=== PATIENT | female | born 1985 | race Caucasian/White ===

== ENCOUNTER 2016-10-06 11:44 | Emergency (ER) | payer MEDICAID, OTHER ==
[~2016-10-06] VITALS: Wt 95.0 kg
[2016-10-06 13:14] LABS: URINE BLOOD (Dip) POC 2+ (NEGATIVE)
[2016-10-06] MEDS ORDERED: NITR-58 PO (13:31)
[2016-10-06] MEDS ORDERED: PHEN-537 PO (13:31)
--- NOTE | 2016-10-06 15:47 | ERD ---
ER Documentation Chief Complaint Date/Time DATE: 10/06/16 TIME: 15:39 Chief Complaint DYSURIA AND HEMATURIA FOR THE PAST FEW DAYS. NO N/V. HPI This is a 31-year-old female presenting to emergency department for dysuria, hematuria, frequency and urgency with urination 2 days. Patient states she believes she has a urinary tract infection. No nausea or vomiting. No abdominal pain. patient has some lower suprapubic pelvic pain. No back pain. Patient states she has 1-2 urinary tract infections per year. No new sexual partners. No vaginal discharge. No pruritus, lesions or rash. ROS All systems reviewed and are negative except as per history of present illness. Medications Home Meds Active Scripts Phenazopyridine Hcl* (Pyridium*) 100 Mg Tab, 100 MG PO TID Y for URINARY PAIN, # 8 TAB Prov:CALLIE VILLANUEVA NP 10/06/16 Nitrofurantoin Monohyd Macrocr* (Macrobid*) 100 Mg Capsr, 100 MG PO BID for 5 Days, CAP Prov:CALLIE VILLANUEVA NP 10/06/16 Allergies Allergies: Coded Allergies: No Known Drug Allergy (Verified Allergy, Unknown, 06/10/15) PMhx/Soc History of Surgery: Yes (CHOLECYSTECTOMY) Anesthesia Reaction: No Hx Neurological Disorder: Yes (MENINGITIS 2006) Hx Respiratory Disorders: No Hx Cardiac Disorders: No Hx Psychiatric Problems: No Hx Miscellaneous Medical Probl: No Hx Alcohol Use: No Hx Substance Use: No Hx Tobacco Use: No Physical Exam Vitals Vital Signs Date Time Temp Pulse Resp B/P Pulse Ox O2 Delivery O2 Flow Rate FiO2 10/06/16 11:46 98.4 83 20 125/75 99 Physical Exam Const: No acute distress, alert Head: Atraumatic Eyes: Normal Conjunctiva ENT: Normal External Ears, Nose and Mouth. Neck: Full range of motion..~ No meningismus. Resp: Clear to auscultation bilaterally. No wheezing, rhonchi or crackles. Cardio: Regular rate and rhythm, no murmurs Abd: Soft, non tender, non distended. Normal bowel sounds Skin: No petechiae or rashes Back: No midline or flank tenderness. No CVA tenderness. Ext: No cyanosis, or edema Neur: Awake and alert Psych: Normal Mood and Affect Results 24 hrs Laboratory Tests Test 10/06/16 13:18 Bedside Urine Blood 2+ Bedside Urine Glucose (UA) Negative Bedside Urine Ketones (LAB) Negative Bedside Urine Leukocyte Esterase (L 3+ Bedside Urine Nitrite (LAB) Negative Bedside Urine Protein (LAB) 1+ Bedside Urine pH (LAB) 7.0 Procedures/MDM ED COURSE: The patient was stable throughout ED course. I kept the patient and/or family informed of laboratory and diagnostic imaging results throughout the ED course. Laboratory Urine dip 3+ leukocyte esterase, 2+ blood, 1+ protein Urine culture results are pending MDM: This is a 31-year-old female presenting to emergency department for dysuria , hematuria, frequency and urgency with urination 2 days. Urine dip is positive for infection. Urine culture results are pending. No fevers or chills. No CVA tenderness. Patient has suprapubic tenderness on physical exam. Patient's diagnosis is urinary tract infection. Low suspicion for pyelonephritis nephrolithiasis or sepsis., Patient is appropriate for outpatient management will be given prescription for Macrobid and Pyridium. Instructed patient to follow-up with primary care provider in the next 24-48 hours for reassessment and additional management. Return to ED for any high fever, chest pain, difficulty breathing, shortness breath, wheezing, vomiting, diarrhea, abdominal pain or any new or worsening symptoms. Patient verbalizes understanding. All questions answered at discharge. Departure Diagnosis: Primary Impression: UTI (urinary tract infection) Urinary tract infection type: site unspecified Hematuria presence: with hematuria Qualified Code: N39.0 - Urinary tract infection with hematuria, site unspecified Condition: Stable Patient Instructions: Understanding Urinary Tract Infections (UTIs) Referrals: [facility], [facility] YOU HAVE RECEIVED A MEDICAL SCREENING EXAM AND THE RESULTS INDICATE THAT YOU DO NOT HAVE A CONDITION THAT REQUIRES URGENT TREATMENT IN THE EMERGENCY DEPARTMENT. FURTHER EVALUATION AND TREATMENT OF YOUR CONDITION CAN WAIT UNTIL YOU ARE SEEN IN YOUR DOCTORS OFFICE WITHIN THE NEXT 1-2 DAYS. IT IS YOUR RESPONSIBILITY TO MAKE AN APPOINTMENT FOR FOLOW-UP CARE. IF YOU HAVE A PRIMARY DOCTOR --you should call your primary doctor and schedule an appointment IF YOU DO NOT HAVE A PRIMARY DOCTOR YOU CAN CALL OUR PHYSICIAN REFERRAL HOTLINE AT IF YOU CAN NOT AFFORD TO SEE A PHYSICIAN YOU CAN CHOSE FROM THE FOLLOWING [facility] [address] [facility]. [facility] [address] [facility] [facility] [address] [facility] [address] [facility]. [facility] [address] [facility]. [facility] [address] [facility]. [facility] YOU HAVE RECEIVED A MEDICAL SCREENING EXAM AND THE RESULTS INDICATE THAT YOU DO NOT HAVE A CONDITION THAT REQUIRES URGENT TREATMENT IN THE EMERGENCY DEPARTMENT. FURTHER EVALUATION AND TREATMENT OF YOUR CONDITION CAN WAIT UNTIL YOU ARE SEEN IN YOUR DOCTORS OFFICE WITHIN THE NEXT 1-2 DAYS. IT IS YOUR RESPONSIBILITY TO MAKE AN APPOINTMENT FOR FOLOW-UP CARE. IF YOU HAVE A PRIMARY DOCTOR --you should call your primary doctor and schedule and appointment IF YOU DO NOT HAVE A PRIMARY DOCTOR YOU CAN CALL OUR PHYSICIAN REFERRAL HOTLINE AT . IF YOU CAN NOT AFFORD TO SEE A PHYSICIAN YOU CAN CHOSE FROM THE FOLLOWING [facility] INSTITUTIONS: [facility] [address] [place] [address] [facility] [address] [place] [address] [facility] [address] [place] [address] Additional Instructions: Call your primary care doctor TOMORROW for an appointment during the next 2-3 days.See the doctor sooner or return here if your condition worsens before your appointment time. Return to ED for any high fever, chest pain, difficulty breathing, shortness breath, wheezing, vomiting, diarrhea, abdominal pain or any new or worsening symptoms. CALLIE VILLANUEVA NP Oct 06, 2016 15:47
== END 2016-10-06 14:33 | disposition home or self-care (01) ==
LOC: FTE 11:44
DX: N39.0 Urinary tract infection, site not specified (principal)
CPT/HCPCS: 81003; 87086; Z7502; 99283

== ENCOUNTER 2017-02-26 20:59 | Emergency (ER) | payer MEDICAID, OTHER ==
[~2017-02-26] VITALS: Ht 160 cm; Wt 94.5 kg
[~2017-02-26 20:59] MED LIST: NITR-58 PO; PHEN-537 PO
[2017-02-26 21:07] VITALS: Ht 160 cm; Wt 94.5 kg
[2017-02-26] MEDS ORDERED: AMO500 PO (21:37)
--- NOTE | 2017-02-26 23:26 | ERD ---
ER Documentation Chief Complaint Date/Time DATE: 02/26/17 TIME: 23:24 Chief Complaint LEFT UPPER TOOTH PAIN WITH SWELLING SINCE SATURDAY HPI This patient is a 31-year-old female presenting to the emergency department with complaints of left upper tooth pain for the past 2 days. Symptoms are worsening and constant. Associated symptoms include swelling. Overall symptoms are mild. She states she is calling to make a dentist appointment tomorrow. She denies fevers, chills, or other symptoms. ROS All systems reviewed and are negative except as per history of present illness. Medications Home Meds Active Scripts Amoxicillin* (Amoxicillin*) 500 Mg Cap, 500 MG PO TID for 7 Days, #21 CAP Prov:JAYY GARRISON PA-C 02/26/17 Phenazopyridine Hcl* (Pyridium*) 100 Mg Tab, 100 MG PO TID Y for URINARY PAIN, # 8 TAB Prov:CALLIE VILLANUEVA NP 10/06/16 Nitrofurantoin Monohyd Macrocr* (Macrobid*) 100 Mg Capsr, 100 MG PO BID for 5 Days, CAP Prov:CALLIE VILLANUEVA NP 10/06/16 Allergies Allergies: Coded Allergies: No Known Drug Allergy (Verified Allergy, Unknown, 06/10/15) PMhx/Soc History of Surgery: Yes (CHOLECYSTECTOMY) Anesthesia Reaction: No Hx Neurological Disorder: Yes (MENINGITIS 2007) Hx Respiratory Disorders: No Hx Cardiac Disorders: No Hx Psychiatric Problems: No Hx Miscellaneous Medical Probl: No Hx Alcohol Use: No Hx Substance Use: No Hx Tobacco Use: No Smoking Status: Never smoker Physical Exam Vitals Vital Signs Date Time Temp Pulse Resp B/P Pulse Ox O2 Delivery O2 Flow Rate FiO2 02/26/17 21:07 99.3 73 18 117/75 98 Physical Exam Const: Nontoxic, well-appearing female in no acute distress. Head: Atraumatic Eyes: Normal Conjunctiva ENT: Normal External Ears, Nose and Mouth. Examination of the mouth shows dental caries, poor dentition, erythema and edema surrounding the upper left lateral incisor. Neck: Full range of motion..~ No meningismus. Resp: No signs of respiratory distress noted. No retractions noted. Skin: No petechiae or rashes Back: No midline or flank tenderness Ext: No cyanosis, or edema Neur: Awake and alert Psych: Normal Mood and Affect Procedures/MDM 31-year-old female presents to the emergency department with dental pain. History and clinical examination is consistent with possible early dental abscess to the left upper lateral incisor. The patient has had this in the past and it resolved with amoxicillin. The patient will be prescribed amoxicillin and treated as an outpatient. She is to have close follow-up with her dentist. I have low suspicion for deep tissue infection, sepsis, or other emergent conditions. The patient agreed with the discharge plan and diagnosis. The patient is to return immediately for any new or worsening symptoms. Departure Diagnosis: Primary Impression: Pain, dental Condition: Fair Patient Instructions: Dental Pain Referrals: [facility] YOU HAVE RECEIVED A MEDICAL SCREENING EXAM AND THE RESULTS INDICATE THAT YOU DO NOT HAVE A CONDITION THAT REQUIRES URGENT TREATMENT IN THE EMERGENCY DEPARTMENT. FURTHER EVALUATION AND TREATMENT OF YOUR CONDITION CAN WAIT UNTIL YOU ARE SEEN IN YOUR DOCTORS OFFICE WITHIN THE NEXT 1-2 DAYS. IT IS YOUR RESPONSIBILITY TO MAKE AN APPOINTMENT FOR FOLOW-UP CARE. IF YOU HAVE A PRIMARY DOCTOR --you should call your primary doctor and schedule an appointment IF YOU DO NOT HAVE A PRIMARY DOCTOR YOU CAN CALL OUR PHYSICIAN REFERRAL HOTLINE AT IF YOU CAN NOT AFFORD TO SEE A PHYSICIAN YOU CAN CHOSE FROM THE FOLLOWING [facility] [address] [facility]. [facility] [address] [facility] [address] [facility] [address] [facility] [facility] [address] [facility] [facility]. [address] Additional Instructions: Follow up with your PCP within the next 1-3 days for a repeat evaluation. If you require a referral to a specialist, your Primary Care Provider may be able to provide this for you. In most patient cases, a referral is not required. If you have further questions regarding this matter, please ask your Primary Care Provider. Return the the emergency department immediately if symptoms worsen or change. If you have any questions regarding medications, ask your pharmacist or us before you leave. If any adverse reactions, occur while taking your medications, discontinue the treatment and return to the emergency department immediately. If any new or worsening symptoms, uncontrolled fevers, or other unexplained symptoms occur, return to the emergency department immediately. Take your medications as directed, and complete the entire course of treatment. JAYY GARRISON PA-C Feb 26, 2017 23:26
== END 2017-02-26 21:44 | disposition home or self-care (01) ==
LOC: FTE 20:59
DX: K08.89 Other specified disorders of teeth and supporting structures (principal)
CPT/HCPCS: 99283

== ENCOUNTER 2017-05-22 12:25 | Emergency (ER) | payer MEDICAID ==
[~2017-05-22] VITALS: Ht 157.5 cm; Wt 92.5 kg
[~2017-05-22 12:25] MED LIST changes: +AMOX500C2 PO
[2017-05-22 12:29] VITALS: Ht 157.5 cm; Wt 92.5 kg
== END 2017-05-22 14:05 | disposition left against medical advice (07) ==
LOC: FTE 12:25
DX: Z53.21 Procedure and treatment not carried out due to patient leaving prior to being seen by health care provider (principal)

== ENCOUNTER 2018-03-11 09:03 | Emergency (ER) | END 2018-03-11 11:42 | disposition home or self-care (01) ==

== ENCOUNTER 2019-01-21 19:44 | Emergency (ER) | payer OTHER ==
[~2019-01-21] VITALS: Ht 162.6 cm; Wt 91.0 kg
[~2019-01-21 19:44] MED LIST changes: +NAPR-985 PO
[2019-01-21 19:55] VITALS: BP 115/68; PULSE 99; RESP 18; Ht 162.6 cm; Wt 91.0 kg
[2019-01-21] MEDS ORDERED: IBUP-1542 PO (21:01)
[2019-01-21] MEDS ORDERED: AMOX1TAB10 PO (21:02)
--- NOTE | 2019-01-22 02:46 | ERD ---
ER Documentation Chief Complaint Chief Complaint L earache x 1 week w/slight pus&bleed; hx perforated eardrum HPI 33-year-old female with history of perforated left TM presents with complaint of earache for the last week with some noted discharge. Denies any treatments. States pain is currently an 8 out of 10. She does not want any opiates for pain but rather ibuprofen. Patient denies any fevers, chills, headaches, mastoid tenderness, hearing problems. ROS All systems reviewed and are negative except as per history of present illness. Medications Home Meds Active Scripts Amoxicillin/Potassium Clav (Amox-Clav 875-125 mg Tablet) 875-125 mg Tab, 1 TAB PO BID for 10 Days, #20 TAB Prov:JAYY RODRIGUES 01/21/19 Ibuprofen* (Motrin*) 600 Mg Tab, 600 MG PO Q6H PRN for PAIN AND OR ELEVATED TEMP, #30 TAB Prov:JAYY RODRIGUES 01/21/19 Naproxen* (Naprosyn*) 500 Mg Tablet, 500 MG PO BID PRN for PAIN AND/OR INFLAMMATION, #30 TAB Prov:HEATHER FERNANDO PA-C 03/11/18 Amoxicillin* (Amoxicillin*) 500 Mg Cap, 500 MG PO TID for 7 Days, #21 CAP Prov:JAYY GARRISON PA-C 02/26/17 Phenazopyridine Hcl* (Pyridium*) 100 Mg Tab, 100 MG PO TID PRN for URINARY PAIN, #8 TAB Prov:CALLIE VILLANUEVA NP 10/06/16 Nitrofurantoin Monohyd Macrocr* (Macrobid*) 100 Mg Capsr, 100 MG PO BID for 5 Days, CAP Prov:CALLIE VILLANUEVA NP 10/06/16 Allergies Allergies: Coded Allergies: No Known Drug Allergy (Verified Allergy, Unknown, 06/10/15) PMhx/Soc History of Surgery: Yes (CHOLECYSTECTOMY) Anesthesia Reaction: No Hx Neurological Disorder: Yes (MENINGITIS 2007) Hx Respiratory Disorders: No Hx Cardiac Disorders: No Hx Psychiatric Problems: No Hx Miscellaneous Medical Probl: Yes (LT FOOT INJURY) Hx Alcohol Use: No Hx Substance Use: No Hx Tobacco Use: No Smoking Status: Never smoker FmHx Family History: No diabetes, No coronary disease, No other Physical Exam Vitals Vital Signs Date Temp Pulse Resp B/P (MAP) Pulse Ox O2 O2 Flow FiO2 Time Delivery Rate 01/21/19 97.8 99 18 115/68 95 19:55 (84) Physical Exam 50 const: No acute distress Head: Atraumatic Eyes: Normal Conjunctiva ENT: Normal External Ears, Nose and Mouth. Left TM is partially ruptured and erythematous. There is some discharge noted. No blood noted. Canals are patent with no edema or erythema. Tragus is nontender to palpation. Mastoids are nonedematous erythematous edematous or tender to palpation. Neck: Full range of motion. No meningismus. Resp: Clear to auscultation bilaterally Cardio: Regular rate and rhythm, no murmurs Abd: Soft, non tender, non distended. Normal bowel sounds Skin: No petechiae or rashes Back: No midline or flank tenderness Ext: No cyanosis, or edema Neur: Awake and alert Psych: Normal Mood and Affect Procedures/MDM MDM: Patient's presentation is consistent with acute otitis media. Patient states that she is scheduled to receive surgery for perforated TM so do not feel that ENT consult is needed at this time but rather patient was advised to follow-up with her ENT. Patient given Rx for Augmentin and ibuprofen for pain. I have low suspicion for mastoiditis due to lack of erythema, edema, or ttp over mastoid area. I have low suspicion for intercranial abscess due to lack of REA or focal neurological findings. I have low suspicion of TM rupture or trauma based on lack of hearing loss, vertigo, and PE findings. Most likely diagnosis is acute otitis media. Based on these findings I do not feel that additional labs or imaging is necessary. At this time, patient is stable for discharge and outpatient management. I have instructed the patient to follow-up with his/her primary care physician in 1-2 days. I have discussed with the patient the possibility of needing to see a specialist for further workup and imaging studies if symptoms persist. I have instructed the patient to promptly return to the ER for any new or worsening symptoms including but not limited to increased pain, fever, nausea, vomiting, weakness or LOC. The patient and/or family expressed understanding of and agreement with this plan. All questions were answered. Home care instructions were provided. DISCLAIMER: Inadvertent spelling and grammatical errors are likely due to EHR/dictation software use and do not reflect on the overall quality of patient care. Also, please note that the electronic time recorded on this note does not necessarily reflect the actual time of the patient encounter. Departure Diagnosis: Primary Impression: Otitis media Condition: Stable Patient Instructions: Otitis Media, Abx Tx (Adult) Additional Instructions: FOLLOW UP WITH YOUR PRIMARY CARE PHYSICIAN TOMORROW.Return to this facility if you are not improving as expected. JAYY RODRIGUES Jan 22, 2019 02:46
== END 2019-01-21 21:08 | disposition home or self-care (01) ==
LOC: FTE 19:44
DX: H66.92 Otitis media, unspecified, left ear (principal)
CPT/HCPCS: 99283